=== PATIENT | female | born 1990 | race Hispanic/Latino ===

== ENCOUNTER 2018-12-04 19:51 | Emergency (ER) | payer OTHER, SELFPAY ==
[2018-12-04 21:11] LABS: Absolute Monocytes 0.5 K/uL (0.1-1.3); Absolute Neutrophil 6.9 K/uL (1.8-8.0); Basophils % 0.2 % (0-1.3); Eosinophils % 0.2 % (0-4.4); Hematocrit 37.1 % (36.0-45.0); Lymphocytes % 12.1 % (15.3-44.8); MPV 8.9 fL (7.6-11.3); RBC Red Blood Cell Count 4.24 M/uL (3.86-4.86)
[2018-12-04 21:19] LABS: Urine Blood NEGATIVE (NEG); Urine Glucose NEGATIVE (NEG); Urine Protein TRACE (NEG); Urine Specific Gravity >1.030 (1.005-1.030); Urine pH 5.5 (5.0-7.0)
[2018-12-04 21:49] LABS: BUN Blood Urea Nitrogen 6 mg/dL (7-18); Bicarbonate 24 mmol/L (21-32); Glucose Level 78 mg/dL (74-106); HCG, Quantitative 25440 mIU/mL (1-3); Potassium 3.2 mmol/L (3.5-5.1); Sodium Level 140 mmol/L (136-145)
[2018-12-04] MEDS ORDERED: POTASSIUM 25 MEQ EFFERV TAB ONE (22:48)
--- NOTE | 2018-12-04 23:13 | ER ---
Nurse's Notes [facility] Name: Siri Juárez Age: 28 yrs Sex: Female : 1990 Arrival Date: 12/04/2018 Time: 19:57 Bed 15 Private MD: Diagnosis: Pain localized to other parts of lower abdomen; related conditions, unspecified, second trimester Presentation: 12/04 20:13 Presenting complaint: Patient states: LLQ abdominal pain and mid lower back pain since lp1 yesterday with vaginal discharge clear green in color; States 16 weeks ; Denies any fever. Transition of care: patient was not received from another setting of care. Onset of symptoms was December 03, 2018. Risk Assessment: Do you want to hurt yourself or someone else? Patient reports no desire to harm self or others. Initial Sepsis Screen: Does the patient meet any 2 criteria? No. Patient's initial sepsis screen is negative. Does the patient have a suspected source of infection? No. Patient's initial sepsis screen is negative. Care prior to arrival: None. 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 - Social history:: Smoking status: Patient/guardian denies using tobacco. - Ebola Screening: : No symptoms or risks identified at this time. Screenin:16 Abuse screen: Denies threats or abuse. Denies injuries from another. Nutritional lp1 screening: No deficits noted. Tuberculosis screening: No symptoms or risk factors identified. Fall Risk None identified. Assessment: 20:17 General: Appears in no apparent distress. uncomfortable, Behavior is calm, cooperative, jd3 appropriate for age. Pain: Complains of pain in left lower quadrant Quality of pain is described as aching. Neuro: Level of Consciousness is awake, alert, obeys commands, Oriented to person, place, time, situation. Cardiovascular: Capillary refill < 3 seconds Patient's skin is warm and dry. Respiratory: Airway is patent Respiratory effort is even, unlabored, Respiratory pattern is regular, symmetrical. GI: Bowel sounds present X 4 quads. Abd is soft and non tender X 4 quads. Reports lower abdominal pain. : Parent/caregiver report the patient having discharge from vagina that is green. EENT: No signs and/or symptoms were reported regarding the EENT system. Derm: Skin is intact, Skin is dry, Skin is normal, Skin temperature is warm. Musculoskeletal: Circulation, motion, and sensation intact. Range of motion: intact in all extremities. 21:04 Reassessment: Patient appears in no apparent distress at this time. Patient and/or jd3 family updated on plan of care and expected duration. Pain level reassessed. Patient is alert, oriented x 3, equal unlabored respirations, skin warm/dry/pink. 22:20 Reassessment: Patient appears in no apparent distress at this time. No changes from jd3 previously documented assessment. Patient and/or family updated on plan of care and expected duration. Pain level reassessed. Patient is alert, oriented x 3, equal unlabored respirations, skin warm/dry/pink. 23:03 Reassessment: Patient appears in no apparent distress at this time. No changes from jd3 previously documented assessment. Patient and/or family updated on plan of care and expected duration. Pain level reassessed. Patient is alert, oriented x 3, equal unlabored respirations, skin warm/dry/pink. 23:35 Reassessment: pt's arm swelling after Rocephin injection, provider notified. will jd3 continue to monitor. 23:55 Reassessment: Patient appears in no apparent distress at this time. Patient and/or jd3 family updated on plan of care and expected duration. Pain level reassessed. Patient is alert, oriented x 3, equal unlabored respirations, skin warm/dry/pink. swelling decreasing in pt's arm. pt reported understanding of discharge instructions. Vital Signs: 20:15 Weight 68.04 kg; Height 5 ft. 1 in. (156 cm); Pain 7/10; lp1 20:16 BP 117 / 64; Pulse 81; Resp 16 S; Temp 98.4(O); Pulse Ox 100% on R/A; Weight 72.57 kg jd3 (R); Height 5 ft. 4 in. (162.56 cm) (R); Pain 7/10; 22:20 BP 96 / 68; Pulse 82; Resp 16 S; Pulse Ox 100% on R/A; jd3 23:03 BP 92 / 59; Pulse 74; Resp 16 S; Pulse Ox 100% on R/A; jd3 20:16 Body Mass Index 27.46 (72.57 kg, 162.56 cm) jd3 ED Course: 19:57 Patient arrived in ED. al2 20:06 Miller Felix, LENA is Primary Nurse. jd3 20:08 Trevor Bella PA is PHCP. cp 20:08 Mack Richter MD is Attending Physician. cp 20:15 Triage completed. lp1 20:15 Arm band placed on left wrist. lp1 20:19 Patient has correct armband on for positive identification. Bed in low position. Call jd3 light in reach. Side rails up X 1. Adult w/ patient. 21:00 Inserted saline lock: 20 gauge in right antecubital area, using aseptic technique. jd3 Blood collected. placed by [facility] tech. 22:36 OB Limited In Process Unspecified. EDMS 23:46 No provider procedures requiring assistance completed. IV discontinued, intact, jd3 bleeding controlled, No redness/swelling at site. Pressure dressing applied. Administered Medications: 22:44 Drug: Potassium Effervescent Tablet 50 mEq Route: PO; jd3 23:03 Follow up: Response: No adverse reaction jd3 23:14 Drug: Zithromax 1 grams Route: PO; jd3 23:37 Follow up: Response: No adverse reaction jd3 23:14 Drug: Rocephin (cefTRIAXone) 250 mg Route: IM; Site: right deltoid; jd3 23:36 Follow up: Response: Other; swelling noted at the injection site. provider notified jd3 23:37 Drug: Benadryl 50 mg Route: PO; jd3 23:56 Follow up: Response: No adverse reaction jd3 Outcome: 23:12 Discharge ordered by . cp 23:55 Discharged to home ambulatory, with family. jd3 23:55 Condition: stable 23:55 Discharge instructions given to patient, family, Instructed on discharge instructions, follow up and referral plans. medication usage, Demonstrated understanding of instructions, follow-up care, medications, Prescriptions given X 2. 23:57 Patient left the ED. as[place] Signatures: Dispatcher [employer] EDMS Aida Friedman RN RN lp1 Trevor Bella PA PA cp Davies, Jonathon, RN RN jd3 Daylin, Ara streeter
--- NOTE | 2018-12-04 23:13 | EDPHYS ---
Physician Documentation [facility] Name: Siri Juárez Age: 28 yrs Sex: Female : 1990 Arrival Date: 12/04/2018 Time: 19:57 Bed 15 Private MD: ED Physician Mack Richter HPI: 12/04 20:35 This 28 yrs old Female presents to ER via Ambulatory with complaints of cp Vaginal Discharge, Back Pain, Abdominal Pain, 16 WEEKS PREG. 20:35 The patient presents with vaginal discharge, that is green discharge. 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 - Social history:: Smoking status: Patient/guardian denies using tobacco. - Ebola Screening: : No symptoms or risks identified at this time. ROS: 20:45 Constitutional: Negative for body aches, chills, fever, poor PO intake. cp 20:45 Eyes: Negative for injury, pain, redness, and discharge. cp 20:45 ENT: Negative for drainage from ear(s), ear pain, sore throat, difficulty swallowing, difficulty handling secretions. 20:45 Cardiovascular: Negative for chest pain, edema, palpitations. 20:45 Respiratory: Negative for cough, shortness of breath, wheezing. 20:45 Abdomen/GI: Positive for abdominal pain, of the left lower quadrant, Negative for vomiting, diarrhea, constipation, black/tarry stool, rectal bleeding. 20:45 Back: Positive for of the low back area, Negative for injury or acute deformity. 20:45 : Positive for vaginal discharge, Negative for urinary symptoms, vaginal bleeding. 20:45 Skin: Negative for cellulitis, rash. 20:45 Neuro: Negative for altered mental status, dizziness, headache, weakness. 20:45 All other systems are negative. Exam: 20:50 Constitutional: The patient appears in no acute distress, alert, awake, non-toxic, well cp developed, well nourished. 20:50 Head/Face: Normocephalic, atraumatic. cp 20:50 Eyes: Periorbital structures: appear normal, Conjunctiva: normal, no exudate, no injection, Sclera: no appreciated abnormality, Lids and lashes: appear normal, bilaterally. 20:50 ENT: External ear(s): are unremarkable, Nose: is normal, Mouth: Lips: moist, Oral mucosa: moist, Posterior pharynx: is normal, airway is patent, no erythema, no exudate. 20:50 Chest/axilla: Inspection: normal, Palpation: is normal, no crepitus, no tenderness. 20:50 Cardiovascular: Rate: normal, Rhythm: regular. 20:50 Respiratory: the patient does not display signs of respiratory distress, Respirations: normal, no use of accessory muscles, no retractions, no splinting, no tachypnea, labored breathing, is not present, Breath sounds: are clear throughout, no decreased breath sounds, no stridor, no wheezing. 20:50 Abdomen/GI: Inspection: gravid appearance, is noted, Bowel sounds: active, all quadrants, Palpation: soft, in all quadrants, mild abdominal tenderness, in the left lower quadrant, rebound tenderness, is not appreciated, voluntary guarding, is not appreciated, involuntary guarding, is not appreciated. 20:50 Back: pain, that is mild, of the low back area, ROM is normal. 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 20:50 Skin: cellulitis, is not appreciated, no rash present. 20:50 Neuro: Orientation: to person, place \T\ time. Mentation: is normal, Motor: moves all fours, strength is normal, Sensation: is normal. Vital Signs: 20:15 Weight 68.04 kg; Height 5 ft. 1 in. (156 cm); Pain 7/10; lp1 20:16 BP 117 / 64; Pulse 81; Resp 16 S; Temp 98.4(O); Pulse Ox 100% on R/A; Weight 72.57 kg jd3 (R); Height 5 ft. 4 in. (162.56 cm) (R); Pain 7/10; 22:20 BP 96 / 68; Pulse 82; Resp 16 S; Pulse Ox 100% on R/A; jd3 23:03 BP 92 / 59; Pulse 74; Resp 16 S; Pulse Ox 100% on R/A; jd3 20:16 Body Mass Index 27.46 (72.57 kg, 162.56 cm) jd3 MDM: 20:08 Patient medically screened. cp 21:00 Differential diagnosis: dysfunctional uterine bleeding, dysmenorrhea, ectopic cp , ovarian cyst, pelvic inflammatory disease, urinary tract infection, vaginosis. 23:10 Data reviewed: vital signs, nurses notes, lab test result(s), radiologic studies, cp ultrasound. 23:10 Counseling: I had a detailed discussion with the patient and/or guardian regarding: the cp historical points, exam findings, and any diagnostic results supporting the discharge/admit diagnosis, lab results, radiology results, the need for outpatient follow up, an OB/Gyne specialist, to return to the emergency department if symptoms worsen or persist or if there are any questions or concerns that arise at home. 12/04 20:31 Order name: Quantitative Hcg; Complete Time: 22:16 cp 12/04 20:31 Order name: Abo/rh Typing; Complete Time: 21:42 cp 12/04 20:31 Order name: Basic Metabolic Panel; Complete Time: 22:16 cp 12/04 20:31 Order name: CBC with Diff; Complete Time: 21:42 cp 12/04 20:31 Order name: GC (GONORR/CHLAMYDIA) Probe cp 12/04 20:33 Order name: Wet Prep; Complete Time: 22:59 cp 12/04 21:01 Order name: Urine Dipstick--Ancillary (enter results); Complete Time: 21:42 ar5 12/04 21:01 Order name: Urine --Ancillary (enter results); Complete Time: 21:42 ar5 12/04 21:38 Order name: ABO/RH no charge; Complete Time: 21:42 EDMS 12/04 21:56 Order name: OB Limited [facility] 12/04 20:31 Order name: Urine Test (obtain specimen); Complete Time: 21:02 12/04 20:31 Order name: IV Saline Lock; Complete Time: 21:01 12/04 20:31 Order name: Labs collected and sent; Complete Time: 21:02 12/04 20:31 Order name: NPO; Complete Time: 20:42 cp 12/04 20:31 Order name: Urine Dipstick-Ancillary (obtain specimen); Complete Time: 21:02 12/04 20:31 Order name: Pelvic Exam Setup; Complete Time: 21:31 cp Administered Medications: 22:44 Drug: Potassium Effervescent Tablet 50 mEq Route: PO; jd3 23:03 Follow up: Response: No adverse reaction jd3 23:14 Drug: Zithromax 1 grams Route: PO; jd3 23:37 Follow up: Response: No adverse reaction jd3 23:14 Drug: Rocephin (cefTRIAXone) 250 mg Route: IM; Site: right deltoid; jd3 23:36 Follow up: Response: Other; swelling noted at the injection site. provider notified jd3 23:37 Drug: Benadryl 50 mg Route: PO; jd3 23:56 Follow up: Response: No adverse reaction jd3 Disposition: 12/04/18 23:12 Discharged to Home. Impression: Pain localized to other parts of lower abdomen, related conditions, unspecified, second trimester. - Condition is Stable. - Discharge Instructions: Abdominal Pain During , Bacterial Vaginosis. - Prescriptions for Metronidazole 500 mg Oral Tablet - take 1 tablet by ORAL route every 12 hours for 7 days; 14 tablet. Vitamin 27- 0.8 mg Oral Tablet - take 1 tablet by ORAL route once daily; 60 tablet. - Medication Reconciliation Form, Thank You Letter, Antibiotic Education, Prescription Opioid Use form. - Follow up: Private Physician; When: 1 week; Reason: Recheck today's complaints. - Problem is new. - Symptoms have improved. Signatures: Dispatcher [employer] [facility] Aida Friedman RN RN lp1 Trevor Bella PA PA cp Davies, Jonathon, RN RN jd3 Corrections: (The following items were deleted from the chart) 21:56 21:48 Transvaginal Ob+US.RAD.BRZ ordered. EDMS EDMS 23:57 23:12 12/04/2018 23:12 Discharged to Home. Impression: Pain localized to other parts of jd3 lower abdomen; related conditions, unspecified, second trimester. Condition is Stable. Forms are Medication Reconciliation Form, Thank You Letter, Antibiotic Education, Prescription Opioid Use. Follow up: Private Physician; When: 1 week; Reason: Recheck today's complaints. Problem is new. Symptoms have improved. cp
[2018-12-04] MEDS ORDERED: CEFTRIAXONE 250 MG/VIAL ONE (23:17)
[2018-12-04] MEDS ORDERED: AZITHROMYCIN 250 MG TAB ONE (23:18)
[2018-12-04] MEDS ORDERED: DIPHENHYDRAMINE 25 MG TAB/CAP ONE (23:42)
--- NOTE | 2018-12-05 07:50 | RAD REPORT ---
EXAM DESCRIPTION: US - OB Limited - 12/04/2018 10:36 pm CLINICAL HISTORY: with abdominal pain COMPARISON: None FINDINGS: Limited Ob ultrasound performed to assess the viability, placenta and amniotic fluid Single live into is in breech presentation. The placenta is anterior. A subchorionic/retrop lacental bleed is not noted. The amniotic fluid is within normal limits. Cardiac activity 151 beats p er minute. Cervix 4.6 centimeters BPD 3.7 centimeters 17 weeks 3 days HC 14.2 centimeters 17 weeks 4 days HC 12.1 centimeter 17 weeks 5 days FL 2.6 centimeters 17 weeks 5 days Estimated weight 270 grams. Evaluation of right and left adnexal unremarkable IMPRESSION: Single live intrauterine with an estimated gestational age 17 weeks 4 days ERIC 05/10/2019 Breech presentation Normal amniotic fluid If a survey is desired it should be performed in approximately 1 week
[2018-12-07 05:58] LABS: C.trachomatis RNA,TMA Not Detected (Not Detected)
== END 2018-12-04 23:57 | disposition home or self-care (01) ==
LOC: ER 19:51
DX: O26.892 Other specified pregnancy related conditions, second trimester (principal); R10.30 Lower abdominal pain, unspecified; Z3A.17 17 weeks gestation of pregnancy
CPT/HCPCS: 36415; 76815; 80048; 81003; 81025; 84702; 85025; 86900; 86901; 87210; 87490; 87590; 96372; 99284; J0696